=== PATIENT | female | born 1955 | race Caucasian/White ===

== ENCOUNTER → 2019-08-28 | Outpatient (CLI) | payer MEDICARE ==
[~2019-08-28] MED LIST: CHOL3000 PO; CHOL500062 PO; CITA20TA6 PO; FOLI20CA PO; FURO20TA3 PO; HYDR-2761 PO; HYDR30CR61 TP; LEVO75TA5 PO; MULT-245 PO; RIVA20TA2 PO; VIT1CAPS20 PO
--- NOTE | 2019-08-28 16:30 | CARD ---
MR#: [id number] Date of Study: 08/28/2019 Ordering Physician: PEGGY CHRISTIE, Referring Physician: PEGGY CHRISTIE, Tech: Merle Russo APPROVED REPORT EXAM: Two-dimensional and M-mode echocardiogram with Doppler and color Doppler. Other Information Quality : AverageHR: 65bpm INDICATION Dyspnea 2D DIMENSIONS RVDd3.2 (2.9-3.5cm)Left Atrium(2D)3.5 (1.6-4.0cm) IVSd1.3 (0.7-1.1cm)Aortic Root(2D)3.0 (2.0-3.7cm) LVDd4.5 (3.9-5.9cm)LVOT Diameter2.0 (1.8-2.4cm) PWd1.1 (0.7-1.1cm)LVDs2.9 (2.5-4.0cm) FS (%) 35.0 %SV59.5 ml LVEF(%)64.4 (>50%) Aortic Valve AoV Peak Rupert.174.0cm/sAoV VTI35.0cm AO Peak GR.12.1mmHgLVOT Peak Rupert.150.3cm/s LVOT VTI 31.18cmAO Mean GR.6mmHg NIECY (VMAX)2.33ll2ALS (VTI)2.81cm2 Mitral Valve MV E Mean Gr.2mmHg Tricuspid Valve TR P. Wisgvqgr154sv/sRAP [id number] TR Peak Gr.47inQhCRHY17tbVx Pulmonary Vein S1 Uzalarqk02.1cm/sD2 Ilhokpze08.0cm/s PVa [id number] LEFT VENTRICLE The left ventricle is normal size. There is mild concentric left ventricular hypertrophy. The left ve ntricular systolic function is normal and the ejection fraction is within normal range. The Ejection Fraction is 55-60%. There is normal LV segmental wall motion. Transmitral Doppler flow pattern is Gra de II-pseudonormal filling dynamics. RIGHT VENTRICLE The right ventricle is normal size. There is normal right ventricular wall thickness. The right ventr icular systolic function is normal. ATRIA The left atrium size is normal. The right atrium size is normal. The interatrial septum is intact wit h no evidence for an atrial septal defect or patent foramen ovale as noted on 2-D or Doppler imaging. AORTIC VALVE The aortic valve is calcified but opens well. Doppler and Color Flow revealed trace aortic regurgitat ion. There is no significant aortic valvular stenosis. MITRAL VALVE The mitral valve is normal in structure and function. There is no evidence of mitral valve prolapse. There is no mitral valve stenosis. Doppler and Color-flow revealed trace mitral regurgitation. TRICUSPID VALVE The tricuspid valve is normal in structure and function. Doppler and Color Flow revealed trace tricus pid regurgitation with an estimatedj PAP of 30 mmHg. There is no tricuspid valve stenosis. PULMONIC VALVE The pulmonic valve is not well visualized. Doppler and Color Flow revealed no pulmonic valvular regur gitation. There is no pulmonic valvular stenosis. GREAT VESSELS The aortic root is normal in size. The ascending aorta is normal in size. The IVC is normal in size a nd collapses >50% with inspiration. PERICARDIAL EFFUSION There is no evidence of significant pericardial effusion. Critical Notification Critical Value: No <Conclusion> The left ventricular systolic function is normal and the ejection fraction is within normal range. Th e Ejection Fraction is 55-60%. There is normal LV segmental wall motion. Signed by : Irwin Torres, Electronically Approved : 08/28/2019 16:30:21
== END | disposition home or self-care (01) ==
LOC: ECHO 09:00
PROVIDERS: ATTEND Internal Medicine Cardiovascular Disease
DX: I70.0 Atherosclerosis of aorta (principal); I51.7 Cardiomegaly
CPT/HCPCS: 93306

== ENCOUNTER → 2019-12-20 | Outpatient (CLI) | payer MEDICARE ==
[2019-09-06 15:00] VITALS: BP 112/61
--- NOTE | 2019-12-20 12:31 | CARD ---
MR#: [id number] Date of Study: 12/20/2019 Ordering Physician: JENNY IVERSON, Referring Physician: JENNY IVERSON, Tech: Sherley Mayberry MCKENNA APPROVED REPORT EXAM: Two-dimensional and M-mode echocardiogram with Doppler and color Doppler. Other Information Quality : Good INDICATION Peripheral Artery Disease 2D DIMENSIONS RVDd3.3 (2.9-3.5cm)Left Atrium(2D)3.2 (1.6-4.0cm) IVSd0.8 (0.7-1.1cm)Aortic Root(2D)2.9 (2.0-3.7cm) LVDd3.9 (3.9-5.9cm)LVOT Diameter1.9 (1.8-2.4cm) PWd0.8 (0.7-1.1cm)LVDs1.9 (2.5-4.0cm) FS (%) 30.0 %SV54.3 ml LVEF(%)60.0 (>50%) Aortic Valve AoV Peak Rupert.132.0cm/sAoV VTI26.6cm AO Peak GR.7.0mmHgLVOT Peak Rupert.116.4cm/s LVOT VTI 25.00cmAO Mean GR.4mmHg NIECY (VMAX)2.69wp6BKD (VTI)2.76cm2 Mitral Valve MV E Lkixgrna25.9cm/sMV DECEL MFOK027sz MV A Ouelxdde03.5cm/sMV KXM08he E/A Ratio1.1MVA (PHT)3.54cm2 TDI E/Lateral E'10.5E/Medial E'15.7 Tricuspid Valve TR P. Whnqfhza903sl/sRAP THUNKEPD3ijTh TR Peak Gr.35vyJnEQME67opOw Pulmonary Vein S1 Ksdbrhan95.9cm/sD2 Ktzwqbyb87.7cm/s LEFT VENTRICLE The left ventricle is normal size. There is normal left ventricular wall thickness. The left ventricu lar systolic function is normal and the ejection fraction is within normal range. The Ejection Fracti on is 55-60%. There is normal LV segmental wall motion. Transmitral Doppler flow pattern is Grade I-a bnormal relaxation pattern. RIGHT VENTRICLE The right ventricle is normal size. The right ventricular systolic function is normal. ATRIA The left atrium size is normal. The right atrium size is normal. The interatrial septum is intact wit h no evidence for an atrial septal defect or patent foramen ovale as noted on 2-D or Doppler imaging. AORTIC VALVE The aortic valve is mildly thickened but opens well. Doppler and Color Flow revealed no significant a ortic regurgitation. There is no significant aortic valvular stenosis. MITRAL VALVE The mitral valve is normal in structure and function. There is no evidence of mitral valve prolapse. There is no mitral valve stenosis. Doppler and Color Flow revealed no mitral valve regurgitation note d. TRICUSPID VALVE The tricuspid valve is normal in structure and function. Doppler and Color Flow revealed trace tricus pid regurgitation. The PA pressure was estimated at 23 mmHg. There is no tricuspid valve stenosis. PULMONIC VALVE The pulmonary valve is normal in structure and function. Doppler and Color Flow revealed trace pulmon ic valvular regurgitation. There is no pulmonic valvular stenosis. GREAT VESSELS The aortic root is normal in size. The ascending aorta is normal in size. The IVC is normal in size a nd collapses >50% with inspiration. PERICARDIAL EFFUSION There is no evidence of significant pericardial effusion. Critical Notification Critical Value: No <Conclusion> The left ventricle is normal size. The left ventricular systolic function is normal and the ejection fraction is within normal range. The Ejection Fraction is 55-60%. Doppler and Color Flow revealed no significant aortic regurgitation. There is no significant aortic valvular stenosis. Doppler and Color Flow revealed no mitral valve regurgitation noted. Doppler and Color Flow revealed trace tricuspid regurgitation. The PA pressure was estimated at 23 mmHg. Signed by : Jenny Iverson MD Electronically Approved : 12/20/2019 12:30:22
== END | disposition home or self-care (01) ==
LOC: ECHO 10:19
PROVIDERS: ATTEND Internal Medicine Cardiovascular Disease
DX: I73.9 Peripheral vascular disease, unspecified (principal)
CPT/HCPCS: 93306

== ENCOUNTER → 2020-04-12 | Outpatient (CLI) | payer MEDICARE, OTHER ==
[2019-09-06 15:00] VITALS: BP 112/61
[~2020-04-12] MED LIST changes: +GADOTERATE 7.5 MMOL/15ML VIAL. IVP ONE
--- NOTE | 2020-04-12 11:27 | RAD ---
Examination: BRAIN WO/W CONTRAST History: Reason: SUDDEN L SIDED WEAKNESS, CALL REPORT TO DR DAVIS@[phone] / Spl. Instructions: 15ML DOTAREM / History: Comparison/Correlation: None Findings: Multiplanar, multisequence images of the brain were obtained. Following intravenous gadolinium contrast, imaging was performed. Atrophy is present. Chronic ischemic changes noted. Old lacunar infarcts involving the right basal ganglia and about the right anterior lateral ventricular body noted. No restricted diffusion identified. No midline shift or mass effect. No extra-axial collections. Globes and optic nerves are unremarkable. Normal flow voids are evident. No abnormal enhancement. Chronic bilateral maxillary sinusitis is present. Impression: No restricted diffusion to suggest acute infarct. Chronic ischemic white matter and atrophy. Old lacunar infarcts. Electronically signed by: Austin Cook MD (04/12/2020 11:24 AM) [id number]
== END | disposition home or self-care (01) ==
LOC: MRI 09:01
PROVIDERS: ATTEND Internal Medicine
DX: I67.82 Cerebral ischemia (principal); J32.0 Chronic maxillary sinusitis; I63.81 Other cerebral infarction due to occlusion or stenosis of small artery; G31.9 Degenerative disease of nervous system, unspecified
CPT/HCPCS: 70553; A9575